=== PATIENT | female | born 1990 | race Caucasian/White ===

== ENCOUNTER 2019-06-21 13:19 | Emergency (ER) | payer OTHER ==
[2019-06-21 13:49] VITALS: BP 106/62
--- NOTE | 2019-06-21 14:35 | UC ---
Throat Pain/[place] HPI - HPI Summary HPI Summary: 28-year-old female who's had sore throat since yesterday. No known exposure to strep. - History of Current Complaint Chief Complaint: UCRespiratory Stated Complaint: FEVER Time Seen by Provider: 06/21/19 14:14 Hx Obtained From: Patient Hx Last Menstrual Period: 06/21/19 ?: No Onset/Duration: Gradual Onset Severity: Mild Pain Intensity: 4 Cough: None Associated Signs & Symptoms: Positive: Fever - Allergies/Home Medications Allergies/Adverse Reactions: Allergies Allergy/AdvReac Type Severity Reaction Status Date / Time No Known Allergies Allergy Verified 06/21/19 13:49 Home Medications: Home Medications Dm/PE/Acetaminophen/Doxylamine [Vicks Dayquil-Nyquil Cold-Flu] 1 tab PO ONCE PRN 06/21/19 [History Confirmed 06/21/19] Norgestimate-Ethinyl Estradiol [Sprintec 28 Day Tablet] 1 tab PO DAILY 06/21/19 [History Confirmed 06/21/19] PMH/Surg Hx/FS Hx/Imm Hx Previously Healthy: Yes - Surgical History Surgical History: Yes Surgery Procedure, Year, and Place: ear tubes as a child - Family History Known Family History: Positive: Non-Contributory - Social History Lives: With Family Alcohol Use: Occasionally Substance Use Type: None Smoking Status (MU): Never Smoked Tobacco Review of Systems All Other Systems Reviewed And Are Negative: Yes Constitutional: Positive: Fever, Chills ENT: Positive: Sore Throat Is Patient Immunocompromised?: No Physical Exam Triage Information Reviewed: Yes Appearance: Well-Appearing, No Pain Distress, Well-Nourished Vital Signs: Initial Vital Signs Temp 99.2 F 06/21/19 13:45 Pulse 69 06/21/19 13:45 Resp 18 06/21/19 13:45 BP 106/62 06/21/19 13:45 Pulse Ox 98 06/21/19 13:45 Vital Signs Reviewed: Yes Eyes: Positive: Conjunctiva Clear ENT: Positive: Pharynx normal, TMs normal, Uvula midline Neck: Positive: Supple, Nontender, No Lymphadenopathy Respiratory: Positive: Lungs clear, Normal breath sounds, No respiratory distress, No accessory muscle use Cardiovascular: Positive: RRR, No Murmur, Pulses Normal, Brisk Capillary Refill Abdomen Description: Positive: Nontender, No Organomegaly, Soft. Negative: CVA Tenderness (R), CVA Tenderness (L), Distended, Guarding, Hepatomegaly, McBurney' s Point Tenderness, Splenomegaly Bowel Sounds: Positive: Present Musculoskeletal Exam: Normal Neurological Exam: Normal Psychological Exam: Normal Skin Exam: Normal Throat Pain/Nasal Course/Dx - Course Course Of Treatment: Rapid strep test is negative. Patient may do warm salt water gargles, throat lozenges, comfort measures. Follow-up with primary care provider as needed. - Differential Dx/Diagnosis Provider Diagnosis: Pharyngitis Discharge ED - Sign-Out/Discharge Documenting (check all that apply): Patient Departure All imaging exams completed and their final reports reviewed: No Studies - Discharge Plan Condition: Good Disposition: HOME Patient Education Materials: Pharyngitis (ED) Referrals: No Primary Care Phys,NOPCP [Primary Care Provider] - [facility] [Outside] Additional Instructions: Increase fluids, warm saltwater gargles, throat lozenges, [facility] 3 or 4 days if no improvement. Tylenol every 4 hours may alternate with Motrin every 6 or 8 hours for fever or pain. - Billing Disposition and Condition Condition: GOOD Disposition: Home
== END 2019-06-21 15:01 | disposition home or self-care (01) ==
LOC: UCEAST 13:19
DX: J02.9 Acute pharyngitis, unspecified (principal)
CPT/HCPCS: 87651; 99211; G0463